=== PATIENT | female | born 1970 | race Caucasian/White ===

== ENCOUNTER 2018-06-24 12:16 | Emergency (ER) | payer SELFPAY ==
[2018-06-24] MEDS ORDERED: DIPHTH,PERTUSS(ACELL),TET 0.5 ML DISP.SYRIN IM ONE ×2 (12:32→12:41)
[2018-06-24 12:35] VITALS: BP 138/74; PULSE 84; TEMP 97.9; BMI 22.8
--- NOTE | 2018-06-24 12:35 | PDOC ---
Rapid Medical Evaluation Chief Complaint: Wound Time Seen by Provider: 06/24/18 12:30 Medical Evaluation: Allergies Allergy/AdvReac Type Severity Reaction Status Date / Time No Known Allergies Allergy Verified 06/24/18 12:30 06/24/18 12:34 I have performed a brief in-person evaluation of this patient. The patient presents with a chief complaint of: lac to left hand/ palm - kitchen knife Pertinent physical exam findings: 1cm lac to palmar 2nd mcp/ + sens I have ordered the following: Boostrix The patient will proceed to the ED for further evaluation. Discharge Disposition - Diagnosis Hand laceration Qualifiers: Encounter type: initial encounter Laterality: left - Referrals - Patient Instructions - Post Discharge Activity
[2018-06-24] MEDS ORDERED: IBUPROFEN 600 MG TABLET (FP) PO ONE ×2 (13:03→13:04)
--- NOTE | 2018-06-24 13:27 | PDOC ---
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) Past History - Past Medical History Allergies/Adverse Reactions: Allergies Allergy/AdvReac Type Severity Reaction Status Date / Time No Known Allergies Allergy Verified 06/24/18 12:38 Home Medications: Ambulatory Orders Unobtainable 06/24/18 CVA: No COPD: No CHF: No DVT: No HTN: Yes Hypercholesterolemia: Yes - Immunization History Immunization Up to Date: Yes - Suicide/Smoking/Psychosocial Hx Smoking History: Never smoked Information on smoking cessation initiated: No Hx Alcohol Use: No Drug/Substance Use Hx: No *Physical Exam - Vital Signs Last Vital Signs Temp Pulse Resp BP Pulse Ox 97.9 F 84 16 138/74 100 06/24/18 12:31 06/24/18 12:31 06/24/18 12:31 06/24/18 12:31 06/24/18 12:31 - Physical Exam General Appearance: No: Apparent Distress Extremity: positive: Normal Capillary Refill, Normal Range of Motion, Other ( around 1 cm linear, superficial laceration below L index MCP joint) Integumentary: negative: Ecchymosis Neurologic: positive: Alert, Normal Mood/Affect Procedures - Laceration/Wound Repair Left Hand Wound Length: to 2.5 cm Wound Explored: clean Wound's Depth, Shape: superficial Irrigated w/ Saline: Yes Betadine Prep: Yes Anesthesia: 1% Lidocaine Wound Debrided: minimal Wound Repaired With: Sutures Suture Size/Type: 5:0, nylon Number of Sutures: 3 Layer Closure: No ED Treatment Course - Medications Given in the ED: ED Medications Discontinued Medications Generic Name Dose Route Start Last Admin Trade Name Freq PRN Reason Stop Dose Admin Diphtheria/Tetanus/Acell Pertussis 0.5 ml 06/24/18 12:32 06/24/18 12:51 Boostrix - IM 06/24/18 12:33 0.5 ml ONCE ONE Administration Ibuprofen 600 mg 06/24/18 13:03 06/24/18 13:07 Motrin - PO 06/24/18 13:04 600 mg ONCE ONE Administration Medical Decision Making - Medical Decision Making 47 y/o F hx of HTN, HLD, thyroid disease presents with laceration below L index finger around 10 AM. Accidentally cut herself with knife while cutting vegetables. Unsure of last tetanus Lac repaired Tetanus updated Stable for dc 06/24/18 13:26 *DC/Admit/Observation/Transfer Diagnosis at time of Disposition: Hand laceration Qualifiers: Encounter type: initial encounter Foreign body presence: without foreign body Laterality: left Qualified Code(s): S61.412A - Laceration without foreign body of left hand, initial encounter - Discharge Dispostion Disposition: HOME Condition at time of disposition: Stable Decision to Admit order: No - Referrals - Patient Instructions Printed Discharge Instructions: DI for Laceration Repair Additional Instructions: Thank you for choosing [facility]. It was a pleasure taking care of you. Keep site dry for the first 24 hours Afterward, you may gently clean with soap and water Return in 7-10 days for suture removal Return to the Emergency Department if your symptoms worsen or persist or have other concerning symptoms. Durga por elegir el [facility]. Fue un placer cuidar de ti. Mantener el sitio seco marion las primeras 24 horas Despus, puede limpiar suavemente con agua y jabn. Devolucin en 7-10 robert para la retirada de la sutura. Regrese al Departamento de Emergencias si zena sntomas empeoran o persisten o si tiene otros sntomas relacionados. Print Language: TONGAN - Post Discharge Activity
== END 2018-06-24 14:02 | disposition home or self-care (01) ==
LOC: JERFT 12:16
PROC: 3E0234Z Introduction of Serum, Toxoid and Vaccine into Muscle, Percutaneous Approach (ICD-10-PCS; principal; 2018-06-24)
PROC: 0HQGXZZ Repair Left Hand Skin, External Approach (ICD-10-PCS; 2018-06-24)
DX: S61.412A Laceration without foreign body of left hand, initial encounter (principal); W26.0XXA Contact with knife, initial encounter; Y93.G1 Activity, food preparation and clean up; Y92.030 Kitchen in apartment as the place of occurrence of the external cause; Y99.8 Other external cause status
CPT/HCPCS: 90715; 99282-25